=== PATIENT | female | born 1965 | race Caucasian/White ===

== ENCOUNTER 2019-03-05 21:50 | Inpatient (IN) | payer BC ==
[~2019-03-05] VITALS: Ht 157.5 cm; Wt 83.5 kg
[2019-03-05 22:10] LABS: URINE BILIRUBIN NEGATIVE (Negative); URINE BLOOD 1+ (Negative); URINE CLARITY CLEAR; URINE COLOR YELLOW; URINE GLUCOSE-RANDOM* NEGATIVE (Negative); URINE KETONES NEGATIVE (Negative); URINE LEUKOCYTES-REFLEX NEGATIVE (Negative); URINE NITRITE-REFLEX NEGATIVE (Negative); URINE PROTEIN (DIPSTICK) NEGATIVE (Negative)
[2019-03-05 22:33] LABS: BACTERIA-REFLEX 1-9 Few /HPF (None Seen); CASTS None Seen /LPF (None Seen); CRYSTALS None Seen /LPF (None Seen); SQUAMOUS 4-10 Moderate /LPF (0-3); URINE RBC 3-10 Few /HPF (0-2); URINE WBC-REFLEX 0-5 Rare /HPF (0-5)
[2019-03-05 22:51] VITALS: BP 151/87
[2019-03-05 23:21] LABS: HEMATOCRIT 45.4 % (37.0-47.0); HEMOGLOBIN 15.5 gm/dL (12.0-15.0); MCH 30.9 pg (26.0-34.0); MCHC 34.1 g/dL (28.0-37.0); MCV 90.6 fL (80.0-100.0); PLATELET COUNT 199 thou/uL (150-400); RBC 5.01 mil/uL (4.20-5.00); RDW 13.3 % (10.5-14.5); WBC 16.2 thou/uL (4.0-11.0)
[2019-03-05 23:27] LABS: CALCIUM 9.3 mg/dL (8.5-10.1); CREATININE 0.7 mg/dL (0.6-1.0); POTASSIUM 3.7 mmol/L (3.5-5.1)
[2019-03-05 23:34] LABS: ALBUMIN 3.8 g/dL (3.4-5.0); TOTAL BILIRUBIN 0.8 mg/dL (<0.1-1.0); TOTAL PROTEIN 8.1 g/dL (6.4-8.2)
[2019-03-06 00:19] LABS: ABSOLUTE NEUTROPHILS 13.1 thou/uL (1.4-8.2)
[2019-03-06 00:21] LABS: PLATELET ESTIMATE NORMAL
[2019-03-06 12:36] VITALS: BP 126/72
[2019-03-06 13:55] VITALS: BP 139/91
[2019-03-06 14:12] VITALS: BP 140/82
--- NOTE | 2019-03-06 15:46 | NUR ---
PT ARRIVED FROM ER THIS AFTERNOON. ADMISSION ASSESSMENT, EDUCATION AND HX COMPLETE. ORDERS IMPLEMENTED. PT C/O PAIN, ADDRESSED WITH MEDICATION. NO C/O N/V. PT RESTING, FAMILY AT BEDSIDE.
[2019-03-06 19:10] VITALS: BP 99/64
[2019-03-07 03:51] VITALS: BP 125/77
[2019-03-07 06:38] LABS: HEMATOCRIT 39.5 % (37.0-47.0); MCH 30.7 pg (26.0-34.0); MCHC 34.2 g/dL (28.0-37.0); MCV 89.9 fL (80.0-100.0); RBC 4.39 mil/uL (4.20-5.00); RDW 13.4 % (10.5-14.5)
[2019-03-07 06:39] LABS: HEMOGLOBIN 13.5 gm/dL (12.0-15.0)
[2019-03-07 06:48] LABS: CALCIUM 8.9 mg/dL (8.5-10.1); CREATININE 0.6 mg/dL (0.6-1.0); POTASSIUM 3.9 mmol/L (3.5-5.1)
[2019-03-07 07:11] VITALS: BP 101/55
[2019-03-07] MEDS ORDERED: FLAGYL 250 MG250 MG PO (08:13)
[2019-03-07] MEDS ORDERED: CIPRO500 MG PO (08:13)
[2019-03-07] MEDS ORDERED: NORCO 5-325 TA1 EAC1 PO (08:13)
--- NOTE | 2019-03-07 08:45 | NUR ---
PROGRESS PT A/O X 4 UP AD BETO RATING ABDOMINAL PAIN 5 TO 8 TAKING MORPHINE NEEDED. TOLERATING CLEAR LIQUIDS BS POSITIVE. CONTINUE TO MONITOR.
[2019-03-07 12:02] VITALS: BP 101/55
--- NOTE | 2019-03-07 13:46 | NUR ---
PT A&OX4, VSS, PAIN IN ABDOMEN. IV CLOTTED OFF AND REMOVED TODAY. PATIENT REQUESTED PAIN MEDICATION, PO ORDER RECEIVED. PATIENT CHANGED HER MIND STATING SHE DIDNT WANT TO BE DROWSY ON HER WAY HOME. PATIENT STABLE NO SIGNS OF DISTRESS. PATIENT DISCHARGED HOME, ALL BELONGINGS WITH PATIENT.
== END 2019-03-07 15:12 | disposition home or self-care (01) | DRG 392 ==
LOC: ER 21:50 → EROBS 03-06 02:41 → 4W 03-06 02:41 → EROBS 03-06 02:41 → 4W 03-06 13:29
PROVIDERS: Emergency Medicine; Nurse Practitioner Acute Care; ADMIT Internal Medicine
DX: K57.92 Diverticulitis of intestine, part unspecified, without perforation or abscess without bleeding (principal); F12.90 Cannabis use, unspecified, uncomplicated; F17.210 Nicotine dependence, cigarettes, uncomplicated; Z80.6 Family history of leukemia; Z80.0 Family history of malignant neoplasm of digestive organs; Z71.6 Tobacco abuse counseling; Z72.89 Other problems related to lifestyle; Z79.899 Other long term (current) drug therapy
CPT/HCPCS: 10040